=== PATIENT | male | born 1950 | race Caucasian/White ===

== ENCOUNTER 2019-02-13 10:17 | Outpatient (CLI) | payer MEDICARE, OTHER ==
[~2019-02-13 10:17] MED LIST: Iopamidol 370 76% 100 ML VIAL ONE
[2019-02-13 10:57] LABS: Estimated GFR-MDRD - POC Greater than 90
--- NOTE | 2019-02-13 11:50 | CT ---
CT NECK WITH IV CONTRAST: 02/13/2019 HISTORY: Right-sided tongue mass. COMPARISON: None. TECHNIQUE: Serial axial CT imaging at 2 mm intervals, through the neck, from the skull base through lung apices, with IV contrast. Coronal and sagittal reformatted imaging obtained. FINDINGS: The visualized lung apices are unremarkable. The partially imaged brain parenchyma is grossly unremarkable. The visualized paranasal sinuses/mastoid air cells appear grossly unremarkable. The retroantral fat and the parapharyngeal fat appears clear bilaterally. The parotid glands and the submandibular glands appear grossly unremarkable. The thyroid gland, hyoid bone, and thyroid cartilage appear grossly unremarkable. The vocal cord on the right is medialized, and the right piriform sinus is dilated, which may signify vocal cord paralysis. The tonsillar pillars appear grossly unremarkable. There is a polypoid exophytic lesion, which emanates from the posterior aspect of the tongue base, on the right, extending into the region of the vallecula, abutting the ventral aspect of the epiglottis, to the right of midline. This lesion is best seen on axial image 51 and sagittal image 4 4, measuring 1.1 cm in transverse dimension, 1.5 cm in craniocaudal dimension, and 1.1 cm in AP dimension. There are no enlarged lymph nodes identified within the neck on the left. No enlarged nodes are noted within the neck on the right. There is an abnormal appearing round lymph node with central hypodensity on the right, which measures 7 mm in short axis dimension, anterior to the sternocleidomastoid muscle, at the axial level of the hyoid bone. Review of the osseous structures demonstrates fusion at the intervertebral disc level at C4-5. There is anterior osteophyte formation at C3-4. There is a small metallic foreign body associated with the lower lip on the left, anteriorly, measuri ng 6 mm. IMPRESSION: Soft tissue polypoid mass lesion emanating from the posterior aspect of the tongue base to the right of midline, extending into the vallecula. This may be neoplastic in nature and could represent squamous cell carcinoma. If so, there is a somewhat suspicious subcentimeter node anterior to the ri ght sternocleidomastoid muscle, at the axial level of the hyoid bone. Question medialized right vocal cord, as detailed above. CODE T Transcribed Date/Time: 02/13/2019 12:21 PM
== END 2019-02-13 10:18 | disposition home or self-care (01) ==
LOC: SCSCT 10:17
PROVIDERS: ATTEND Otolaryngology Plastic Surgery within the Head & Neck
DX: R22.1 Localized swelling, mass and lump, neck (principal); K14.8 Other diseases of tongue
CPT/HCPCS: 70490; 82565; Q9967

== ENCOUNTER 2019-02-21 09:55 | Day surgery (SDC) | payer MEDICARE, OTHER ==
[2019-02-20 14:24] VITALS: BMI 34.2
[2019-02-21 11:02] LABS: PTT 30.2 SEC (22.9-36.1); Prothrombin Time 13.1 SEC (12.0-14.7)
[2019-02-21 11:14] LABS: Anion Gap 14 mmol/L (10-20); BUN (Urea Nitrogen) 14 mg/dL (8.4-25.7); Calc. Creatinine Clearance 142 mL/min (70-130); Calcium 9.5 mg/dL (7.8-10.44); Carbon Dioxide 25 mmol/L (23-31); Chloride 105 mmol/L (98-107); Estimated GFR-MDRD Greater than 90; Glucose 114 mg/dL (80-115); Potassium 4.6 mmol/L (3.5-5.1); Sodium 139 mmol/L (136-145)
[2019-02-21] MEDS ORDERED: EPINEPHrine 1 MG/ML AMP ONE (12:19)
[2019-02-21] MEDS ORDERED: Fentanyl 100 MCG/2 ML VIAL ONE ×2 (12:23→14:09)
[2019-02-21] MEDS ORDERED: Lidocaine 2% Jelly 5 ML TUBE ONE (12:24)
--- NOTE | 2019-02-22 10:30 | OP ---
DATE OF PROCEDURE: 02/21/2019 PREOPERATIVE DIAGNOSES: 1. Right tongue squamous cell carcinoma. 2. Dysphagia. POSTOPERATIVE DIAGNOSES: 1. Right tongue squamous cell carcinoma. 2. Dysphagia. PROCEDURE PERFORMED: Direct laryngoscopy with biopsy. ESTIMATED BLOOD LOSS: 5 mL. COMPLICATIONS: None. DESCRIPTION OF PROCEDURE: The patient was taken to the operating room, placed supine on the table. General endotracheal anesthesia was obtained by the Anesthesia Staff. The tube was secured in the left lower lip. The head of bed was turned 90 degrees and a shoulder roll was placed. Following this, a protective tooth guard was placed. The Dedo laryngoscope was introduced in the oral cavity. The oral cavity showed no mucosal lesions on suspension. The right base of tongue lesion was noted to be approximately 3.5 cm in length and 2 cm in width. It was exophytic in nature and was arising from the right base of tongue immediately adjacent to the lingual surface of the epiglottis, the majority of this lesion was removed, however, it was secondary to its adjacent nature to the epiglottis. Clear margins were unable to be obtained. The patient tolerated the procedure well. Job ID: [id number]
--- NOTE | 2019-02-23 08:12 | EKG ---
Test Reason : PREOP Blood Pressure : / mmHG Vent. Rate : 064 BPM Atrial Rate : 064 BPM P-R Int : 184 ms QRS Dur : 156 ms QT Int : 438 ms P-R-T Axes : 060 -69 015 degrees QTc Int : 451 ms Normal sinus rhythm Left axis deviation Right bundle branch block Abnormal ECG No previous ECGs available Confirmed by DR. Yris RICARDO ([id number]) on 02/23/2019 8:11:36 AM Referred By: JEFF Confirmed By:DR. Yris RICARDO
== END 2019-02-21 15:50 | disposition home or self-care (01) ==
LOC: SDC 09:55
PROVIDERS: ATTEND Otolaryngology Plastic Surgery within the Head & Neck
PROC: 0CBM8ZX Excision of Pharynx, Via Natural or Artificial Opening Endoscopic, Diagnostic (ICD-10-PCS; principal; 2019-02-21)
DX: C01 Malignant neoplasm of base of tongue (principal); I10 Essential (primary) hypertension; E11.9 Type 2 diabetes mellitus without complications; E78.5 Hyperlipidemia, unspecified; K21.9 Gastro-esophageal reflux disease without esophagitis; E66.9 Obesity, unspecified; Z68.34 Body mass index [BMI] 34.0-34.9, adult; Z79.899 Other long term (current) drug therapy
CPT/HCPCS: 80048; 85610; 85730; 88305; 93005; 93010; J0171; J3010

== ENCOUNTER 2019-03-13 10:26 | Outpatient (CLI) | payer MEDICARE, OTHER ==
--- NOTE | 2019-03-13 12:39 | PET ---
PET CT: 03/13/19 HISTORY: 68-year-old male with squamous cell carcinoma of the right base of tongue. Exam is requested for init ial staging. TECHNIQUE: PET scan with CT attenuation correction was performed from the vertex through the proximal thighs fol lowing the intravenous administration of 12.2 millicuries of 15-fluorodeoxyglucose in the right antec ubital fossa. COMPARISON: None. CORRELATION: CT neck of 02/13/19. FINDINGS: There is hypermetabolic activity in the region of the right base of tongue mass with an SUV of 4.6. No artemio hypermetabolism is seen in the neck, chest, axilla, abdomen or pelvis. No hypermetabolic pul monary nodules, liver, adrenal, or skeletal lesions are seen. There is physiologic activity in the brain, GI and tracts. The CT scan used for attenuation correction demonstrates no evidence for pleural effusions or ascites . There is evidence of old granulomatous disease, bilateral renal cysts and colonic diverticulosis. IMPRESSION: Right base of tongue malignancy. No evidence of metastatic disease. POS: [facility]
== END 2019-03-13 10:27 | disposition home or self-care (01) ==
LOC: PET 10:26
PROVIDERS: ATTEND Radiology Radiation Oncology
DX: C01 Malignant neoplasm of base of tongue (principal)
CPT/HCPCS: 78815; A9552

== ENCOUNTER 2019-09-17 09:46 | Outpatient (CLI) | payer MEDICARE, OTHER ==
--- NOTE | 2019-09-17 11:19 | CT ---
EXAM: CT NECK SOFT TISSUE POST CONTRAST: HISTORY:Base of tongue neoplasm. Status post radiation treatment and excision. Restaging. COMPARISON:02/13/2019 CORRELATION:PET imaging 03/13/2019 FINDINGS: Brain parenchyma: No pathologic enhancement of the visualized brain parenchyma. Sinuses: Adequate aeration of the visualized paranasal sinuses and mastoid air cells. Nasopharynx:Adequate aeration. No mucosal abnormality. Oral cavity, hypopharynx and larynx:Aerodigestive tract is patent. Limited evaluation of the oral cav ity due to dental amalgam artifact. Midline fatty raphae of the tongue is preserved. Previously noted masslike opacity in the right tongue base/lingual tonsils and right aspect of the posterior ora l cavity, extending into the piriform sinus is less evident. There does appear to be post treatment edema involving the tongue base, hypopharynx, epiglottis and supraglottic larynx. There is some mild effacement along the posterior right aspect of the subglottic larynx. No obvious enhancing masses. True vocal cord is unremarkable Paraspinal muscles: Symmetric attenuation of the paraspinal muscles and symmetric attenuation of the sternocleidomastoid muscles.. Parotid and salivary glands: Symmetric attenuation of the parotid and submandibular glands Thyroid gland: Unremarkable. Spine: Vertebral body height is maintained. There is no fracture. Stable degenerative changes of the cervical spine with varying degrees of central canal stenosis and neural foraminal narrowing. Lymph nodes: No evidence of lymphadenopathy by size criteria. Previously noted right neck lymph node is not appreciated. Lung apices and upper mediastinum: No acute abnormality. IMPRESSION: 1. Posttreatment changes are noted in the tongue base, hypopharynx and supraglottic larynx. No CT leighton dence of a residual mucosal base mass. 2. No evidence of lymphadenopathy by size criteria.
[2019-09-17] MEDS ORDERED: Iopamidol-370 76% 500 ML 1 ML ONE (13:51)
== END 2019-09-17 09:47 | disposition home or self-care (01) ==
LOC: BICCT 09:46
PROVIDERS: ATTEND Radiology Radiation Oncology
DX: C01 Malignant neoplasm of base of tongue (principal); Z92.3 Personal history of irradiation
CPT/HCPCS: 70491; 82565; Q9967

== ENCOUNTER 2020-05-26 11:00 | Outpatient (CLI) | payer MEDICARE, OTHER ==
--- NOTE | 2020-05-26 11:20 | RAD ---
Chest 2 views HISTORY: Head and neck cancer. Evaluate for metastasis. FINDINGS: Cardiac silhouette and pulmonary vasculature are unremarkable. Mediastinum is midline. No c onfluent airspace consolidation, pneumothorax, or pleural fluid. Calcified granuloma at the right posterior medial lung base correlates with the 03/13/2019 CT images. IMPRESSION : No active cardiopulmonary abnormalities are demonstrated.
== END 2020-05-26 11:01 | disposition home or self-care (01) ==
LOC: BICRAD 11:00
PROVIDERS: ATTEND Radiology Radiation Oncology
DX: C01 Malignant neoplasm of base of tongue (principal)
CPT/HCPCS: 71046

== ENCOUNTER 2021-07-30 12:57 | Outpatient (CLI) | payer MEDICARE, OTHER | END 2021-07-30 12:58 | disposition home or self-care (01) | LOC: BICULT 12:57 | PROVIDERS: ATTEND Nurse Practitioner Acute Care | DX: R22.2 Localized swelling, mass and lump, trunk (principal) ==

== ENCOUNTER 2022-02-23 15:43 | Outpatient (CLI) | payer MEDICARE, OTHER | END 2022-02-23 15:44 | disposition home or self-care (01) | LOC: BICRAD 15:43 | PROVIDERS: ATTEND Internal Medicine | DX: M54.2 Cervicalgia (principal); M47.812 Spondylosis without myelopathy or radiculopathy, cervical region | CPT/HCPCS: 72040 ==

== ENCOUNTER 2022-11-22 10:41 | Outpatient (CLI) | payer MEDICARE, OTHER | END 2022-11-22 10:42 | disposition home or self-care (01) | LOC: BICRAD 10:41 | PROVIDERS: ATTEND Radiology Radiation Oncology | DX: C01 Malignant neoplasm of base of tongue (principal); E89.0 Postprocedural hypothyroidism | CPT/HCPCS: 71046; 84443 ==